=== PATIENT | female | born 1970 | race Caucasian/White ===

== ENCOUNTER → 2018-05-02 | Outpatient (REF) | payer OTHER, MEDICARE, MEDICAID ==
[2018-05-10 08:21] LABS: ALDOS/RENIN RATIO 63.1 (0.0-30.0); ALDOSTERONE 15.4 ng/dL (0.0-30.0); RENIN ACTIVITY 0.244 ng/mL/hr (0.167-5.380)
== END ==
LOC: M LAB REF 17:06
DX: N18.3 Chronic kidney disease, stage 3 (moderate) (principal); I12.9 Hypertensive chronic kidney disease with stage 1 through stage 4 chronic kidney disease, or unspecified chronic kidney disease
CPT/HCPCS: 84244

== ENCOUNTER → 2018-07-11 | Outpatient (REF) | payer MEDICARE, MEDICAID | LOC: M LAB REF 17:07 | PROVIDERS: ATTEND Internal Medicine Nephrology | DX: N18.3 Chronic kidney disease, stage 3 (moderate) (principal); I12.9 Hypertensive chronic kidney disease with stage 1 through stage 4 chronic kidney disease, or unspecified chronic kidney disease ==

== ENCOUNTER → 2018-10-09 | Outpatient (CLI) | payer MEDICARE, MEDICAID ==
[~2018-10-09] MED LIST: ISOVUE-370 76% 100ML VIAL (Q9967) As Ordered ONE
--- NOTE | 2018-10-09 13:54 | REP ---
Clinical: Chronic renal disease with elevated aldosterone levels. Technique: Axial contrast enhanced and delayed images of the abdomen with coronal and sagittal re-formations. Findings: Lung bases are clear. Visualized heart and pericardium are normal. Mild fatty infiltration to the liver suggested without focal hepatic lesion. Spleen, pancreas, gallbladder, bilateral adrenal glands and kidneys are normal. Delayed images demonstrate normal appearance to the kidneys and collecting system. Visualized enteric system is without obstruction or acute inflammatory process. Normal cecum, terminal ileum, appendix are identified in the visualized right lower abdomen. Evidence for prior gastric bypass surgery noted. Small focus of panniculitis in the mesentery just deep to the umbilicus. Abdominal aorta and vasculature without aneurysm or dissection. Musculoskeletal structures demonstrate age-related change without focal osseous abnormality. Impression: No acute abdominopelvic pathology appreciated. Normal appearance of the kidneys. Fatty infiltration to the liver. 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 Electronically Signed by Rob Barker MD 10/09/2018 01:45 P
== END ==
LOC: M RAD 12:32
PROVIDERS: ATTEND Internal Medicine Nephrology
DX: I12.9 Hypertensive chronic kidney disease with stage 1 through stage 4 chronic kidney disease, or unspecified chronic kidney disease (principal); E26.9 Hyperaldosteronism, unspecified
CPT/HCPCS: 74160; Q9967

== ENCOUNTER → 2021-01-27 | Outpatient (REF) | payer MEDICARE, MEDICAID | LOC: M LAB REF 17:10 | PROVIDERS: ATTEND Internal Medicine Nephrology | DX: N18.31 Chronic kidney disease, stage 3a (principal); E83.42 Hypomagnesemia ==

== ENCOUNTER → 2023-07-04 | Outpatient (CLI) | payer MEDICARE, MEDICAID | LOC: M WHC 09:47 | PROVIDERS: ATTEND Nurse Practitioner Family | DX: Z12.31 Encounter for screening mammogram for malignant neoplasm of breast (principal) ==

== ENCOUNTER → 2023-07-04 | Outpatient (REF) | payer MEDICARE, MEDICAID, OTHER | LOC: M SFHCWAGY 15:50 | PROVIDERS: ATTEND Nurse Practitioner Family | DX: Z12.72 Encounter for screening for malignant neoplasm of vagina (principal); R87.5 Abnormal microbiological findings in specimens from female genital organs | CPT/HCPCS: 87624; G0123 ==

== ENCOUNTER → 2024-07-02 | Outpatient (CLI) | payer MEDICARE, MEDICAID | LOC: M SLEEP 20:00 | PROVIDERS: ATTEND Physician Assistant | DX: G47.8 Other sleep disorders (principal) ==